=== PATIENT | female | born 1990 | race Caucasian/White ===

== ENCOUNTER 2021-02-02 14:34 | Emergency (ER) | payer OTHER, SELFPAY ==
[2021-02-02 14:55] VITALS: BP 134/95; PULSE 88; RESP 18; TEMP 36.5; O2SAT 100
--- NOTE | 2021-02-02 14:56 | ED.FEMALEGU ---
HPI - Female Genitourinary General Chief complaint: Urogenital-Female Stated complaint: UTI Source: patient and RN notes reviewed Limitations: no limitations History of Present Illness HPI Narrative: The patient, on minimal meds but recently unwell, presents with urinary symptoms. Patient states she has remote past history kidney stone;and, she was treated for 5 days with phoned in [facility]-during time period she was isolated for Covid. She completed the [employer] beginning of January and felt better for couple days. She now has a 3-day history of urinary frequency, urgency and hesitancy. Symptoms are mild, worse with micturition, unlike prior kidney stones-she requests refill of Flomax. No fever, low back pain, hematuria, vomiting, vaginal discharge-she declines STD testing. [id number] urinalysis testing shows 1+ definite leukocytosis Related Data Home Medications Medication Instructions Recorded Confirmed methylphenidate HCl 54 mg PO DAILY 02/02/21 02/02/21 norgestimate-ethinyl estradiol 1 tablet PO DAILY 02/02/21 02/02/21 [Tri-Sprintec (28)] Allergies Allergy/AdvReac Type Severity Reaction Status Date / Time No Known Allergies Allergy Verified 02/02/21 14:52 Review of Systems Review of Systems: General/Constitutional: No weight loss,fever Eyes: N0: Redness,discharge Ears/Nose/Throat: No: Epistaxis,ear discharge Respiratory: Denies: Hemoptysis Gastrointestinal: No Vomiting, Bleeding-rectal Skin: No Lumps, eruption Neurologic: No Focal Weakness,Sz Hematologic: Denies: Petechiae/Purpura Psychiatric: No: Suicida ideationl All Other Systems: Reviewed and Negative [facility] Comments At time of signature, agree with nursing past medical, surgical, social and family history. There is no relevant family history pertinent to the presenting complaint Exam Narrative: General Appearance: Well appearing, No distress EYE: PERRLA, Conjunctiva clear Ears: External ear normal Nose: Normal nose Mouth/Throat: Normal appearing, Normal lips Neck: Supple Respiratory: Airway patent, No respiratory distress Cardiovascular: RRR Abdomen: Soft, Non-tender, Musculoskeletal: Full ROM Skin: Warm, Dry Neurological: A&O x3, CN II-X intact Psychiatric: Normal mood, Normal affect Course Vital Signs Vital signs: Vital Signs Temperature 97.7 F 02/02/21 14:55 Pulse Rate 88 02/02/21 14:55 Respiratory Rate 18 02/02/21 14:55 Blood Pressure 134/95 H 02/02/21 14:55 Pulse Oximetry 100 02/02/21 14:55 Temperature 97.7 F 02/02/21 14:55 Pulse Rate 88 02/02/21 14:55 Respiratory Rate 18 02/02/21 14:55 Blood Pressure 134/95 H 02/02/21 14:55 Pulse Oximetry 100 02/02/21 14:55 MDM - Female Genitourinary Lab Data Labs: Urine Glucose Negative Reference Range: Negative Urine Bilirubin Negative Reference Range: Negative Urine Ketone Negative Reference Range: Negative Urine Specific Powell 1.010 Reference Range:1.001-1.035 Urine Blood Trace Reference Range: Negative * * Urine pH 7.0 Reference Range: 5.0-9.0 Urine Protein Negative Reference Range: Negative Urine Urobilinogen 0.2 Reference Range: 0.2-1.0 Urine Nitrate Negative Reference Range: Negative Urine Leukocyte 1+
== END 2021-02-02 15:00 | disposition home or self-care (01) ==
PROVIDERS: Emergency Provider Emergency Medicine
DX: N30.00 Acute cystitis without hematuria (principal); F90.9 Attention-deficit hyperactivity disorder, unspecified type
CPT/HCPCS: 81003; 87077; 87086; 87088; 99203; G0463